=== PATIENT | male | born 1985 | race Two or more races ===

== ENCOUNTER 2019-02-26 13:24 | Emergency (ER) | payer SELFPAY ==
[~2019-02-26] VITALS: Ht 175.3 cm; Wt 72.6 kg
[2019-02-26] MEDS ORDERED: NKM (13:34)
[2019-02-26 13:51] VITALS: BP 102/68
--- NOTE | 2019-02-26 13:53 | NUR ---
ED Nurse Note:blood and urine sent to labs
[2019-02-26] MEDS ORDERED: Omnipaque-300 100ml vial INJ PRN (14:00)
[2019-02-26] MEDS ORDERED: Ketorolac 30mg Inj IV ONE (14:00)
--- NOTE | 2019-02-26 14:24 | Diagnostic Imaging Report ---
Indication: Abdominal pain Technique: Supine view of the abdomen Comparison: none Findings: Bowel gas pattern is unremarkable. No masses or unusual calcifications are demonstrated. Impression: Negative
[2019-02-26 14:28] LABS: APPEARANCE,URINE CLEAR; BILIRUBIN, URINE NEGATIVE (NEGATIVE); COLOR,URINE PALE YELLOW; GLUCOSE, URINE (UA) NEGATIVE (NEGATIVE); KETONES,URINE NEGATIVE (NEGATIVE); LEUKOCYTE ESTERASE ,URINE NEGATIVE (NEGATIVE); NITRITE,URINE NEGATIVE (NEGATIVE); PH,URINE 8 (4.5-8.0); PROTEIN,URINE NEGATIVE (NEGATIVE); UROBILINOGEN,URINE NORMAL MG/DL (0.0-1.0)
[2019-02-26 14:32] LABS: BASOPHILS % (AUTO) 0.5 % (0.0-2.0); EOSINOPHILS % (AUTO) 0.6 % (0.0-3.0); HEMATOCRIT 46.4 % (42.0-52.0); HEMOGLOBIN 15.9 G/DL (14.2-18.0); MEAN CORPUSCULAR VOLUME 92 FL (80-99); MONOCYTES % (AUTO) 7.1 % (1.0-10.0); NEUTROPHILS % (AUTO) 80.8 % (45.0-75.0); PLATELET COUNT 215 K/UL (150-450); RED BLOOD COUNT 5.04 M/UL (4.70-6.10); RED CELL DISTRIBUTION WIDTH 11.1 % (11.6-14.8); WHITE BLOOD COUNT 11.6 K/UL (4.8-10.8)
[2019-02-26 14:50] LABS: ANION GAP 8 mmol/L (5-15); BLOOD UREA NITROGEN 11 mg/dL (7-18); CALCIUM 9.1 MG/DL (8.5-10.1); CARBON DIOXIDE 28 MMOL/L (21-32); CHLORIDE 107 MMOL/L (98-107); CREATININE 0.7 MG/DL (0.55-1.30); SODIUM 143 MMOL/L (136-145)
[2019-02-26 14:54] LABS: ALANINE AMINOTRANSFERASE 37 U/L (12-78); ALBUMIN 4.1 G/DL (3.4-5.0); ALKALINE PHOSPHATASE 86 U/L (46-116); ASPARTATE AMINO TRANSFERASE 27 U/L (15-37); BILIRUBIN,TOTAL 0.8 MG/DL (0.2-1.0)
--- NOTE | 2019-02-26 15:11 | NUR ---
ED Nurse Note:pt. went to ct scan
--- NOTE | 2019-02-26 15:28 | Emergency Room Report ---
History of Present Illness General Chief Complaint: Vomiting Source: Patient Present Illness HPI 33-year-old male with no symptom diffuse abdominal pain, and multiple bouts of emesis reporting tinged this morning. Complains of diarrhea however denies blood in stool. Denies fever and chills, cough and congestion, chest pain, shortness of breath, palpitation, urinary symptoms. Patient sitting comfortably with stable vital signs. Reports that, tobacco smoke, and other drug use denies recent travel, or sick contact. Patient elicits pain on bilateral lower quadrants of abdomen. After blood work and x-rays as well as fluids he decided to leave AGAINST MEDICAL ADVICE as he does not want to have the CT scan of the abdomen done as he does not want to get a bill later as well as he does not feel that it is necessary for him to have one. Patient understands the risks of not having CT scan of abdomen done, risking possible appendicitis, or other organic causes of his symptoms. Patient is a full judgment, awake and alert when signing AMA Allergies: Coded Allergies: No Known Allergies (Unverified , 02/26/19) Patient History Past Medical History: see triage record Past Surgical History: unable to obtain Pertinent Family History: none Immunizations: UTD Reviewed Nursing Documentation: PMH: Agreed; PSxH: Agreed Nursing Documentation-PMH Past Medical History: No Stated History Review of Systems All Other Systems: negative except mentioned in HPI Physical Exam Vital Signs Date Time Temp Pulse Resp B/P (MAP) Pulse Ox O2 Delivery O2 Flow Rate FiO2 02/26/19 13:30 98.2 67 18 102/68 (79) 95 Room Air Sp02 EP Interpretation: reviewed, normal General Appearance: no apparent distress, alert, GCS 15, non-toxic Head: normocephalic, atraumatic Eyes: bilateral eye normal inspection, bilateral eye PERRL ENT: hearing grossly normal, normal pharynx, no angioedema, normal voice Neck: full range of motion, supple/symm/no masses Respiratory: chest non-tender, lungs clear, normal breath sounds, no rhonchi, no wheezing, speaking full sentences Cardiovascular #1: regular rate, rhythm, no edema, no murmur, normal capillary refill Gastrointestinal: normal bowel sounds, non tender, soft, no bruit, non- distended, no guarding, no rebound, guarding - LLQ and RLQ Genitourinary: no CVA tenderness Musculoskeletal: back normal, gait/station normal, normal range of motion, non- tender, no calf tenderness Neurologic: normal inspection, alert, oriented x3 Psychiatric: normal inspection, judgement/insight normal Skin: no rash Lymphatic: normal inspection, no adenopathy Medical Decision Making PA Attestation All my diagnosis and treatment plans were reviewed ad discussed with my supervising physician Dr. Winchester Diagnostic Impression: Primary Impression: Vomiting Additional Impressions: Abdominal pain Left against medical advice ER Course 33-year-old male with no symptom diffuse abdominal pain, and multiple bouts of emesis reporting tinged this morning. Complains of diarrhea however denies blood in stool. Denies fever and chills, cough and congestion, chest pain, shortness of breath, palpitation, urinary symptoms. Patient sitting comfortably with stable vital signs. Reports that, tobacco smoke, and other drug use denies recent travel, or sick contact. Patient elicits pain on bilateral lower quadrants of abdomen. After blood work and x-rays as well as fluids he decided to leave AGAINST MEDICAL ADVICE as he does not want to have the CT scan of the abdomen done as he does not want to get a bill later as well as he does not feel that it is necessary for him to have one. Patient understands the risks of not having CT scan of abdomen done, risking possible appendicitis, or other organic causes of his symptoms. Patient is a full judgment, awake and alert when signing AMA Ddx considered but are not limited to: appendicitis, cholecystis, gastritis, gastroenteritis, UTI, pyelonephritis, SBO, diverticulitis, influenza with GI manifestation, Vital signs: are WNL, pt. is afebrile H&PE are most consistent with: vomiting and abdominal pain ORDERS: abdominal CT, abdominal pain set, EKG, abdominal US ED INTERVENTIONS: NS bolus DISCHARGE: At this time pt. is stable for d/c to home. Will provide printed patient care instructions, and any necessary prescriptions. Care plan and follow up instructions have been discussed with the patient prior to discharge.pt left AMA Chest X-Ray Diagnostic Results Chest X-Ray Diagnostic Results : Chest X-Ray Ordered: Yes # of Views/Limited/Complete: 1 View Indication: Other EP Interpretation: Yes PA Xray: Interpretation reviewed, by supervising MD, and agrees with findings. Interpretation: no consolidation, no effusion, no pneumothorax Impression: No acute disease Electronically Signed by: Flakita Porter PA-C Other X-Ray Diagnostic Results Other X-Ray Diagnostic Results : # of Views/Limited Vs Complete: 2 View Last Vital Signs Date Time Temp Pulse Resp B/P (MAP) Pulse Ox O2 Delivery O2 Flow Rate FiO2 02/26/19 14:45 98.2 02/26/19 13:51 67 18 102/68 95 Room Air Disposition: AGAINST MEDICAL ADVICE Referrals: NOT CHOSEN IPA/MD,REFERRING (PCP) Patient Instructions: Nausea and Vomiting, Adult Additional Instructions: Due to your refusing CT scan we are unable to determine further infection of appendix versus other internal bloody vomit as well as pain. You need to follow -up with your primary care within the next 24 to 48 hours for imaging as well as referral to bottom cementer. You agreed to sign AGAINST MEDICAL ADVICE understanding the risks of not having the imaging done as a prevents us from having a proper treatment for you. Flakita Khan Feb 26, 2019 15:28
--- NOTE | 2019-02-26 16:00 | NUR ---
ED Nurse Note:pt. refused CT scan of abdomen and decided to leave AMA, he was instructed about possible outcomes by ER PA, then pt. signed AMA form and left ER with steady gait friend and all personal belongings
[2019-02-26 16:14] VITALS: BP 102/68
== END 2019-02-26 16:17 | disposition left against medical advice (07) ==
LOC: EMR 14:24
DX: R11.10 Vomiting, unspecified (principal); R10.9 Unspecified abdominal pain
CPT/HCPCS: 74018; 80053; 80307; 81003; 83690; 85025; 85610; 85730; 96361; 96374; 96375; 99284; G0480; J1885; J2405; S0028; J7030